=== PATIENT | male | born 1955 | race Caucasian/White ===

== ENCOUNTER → 2017-01-30 | Outpatient (CLI) | payer MEDICARE, OTHER ==
--- NOTE | 2017-01-30 13:52 | RAD ---
INDICATION: Ataxia and frequent falls. TECHNIQUE: Sagittal T1, axial T1, axial T2, axial FLAIR, axial T2 gradient, coronal T2, and diffusion imaging with ADC map was performed. Comparison is from September 26, 2009. FINDINGS: There is symmetric prominence of the ventricles and sulci. FLAIR hyperintensities in the supratentorial white matter are not specific but most suggestive of moderate small vessel ischemic disease. There is no acute intracranial hemorrhage or extra-axial fluid collection. There is no mass effect or midline shift. There is no restricted diffusion to suggest an acute infarct. Sagittal midline structures are unremarkable. Clival marrow signal is preserved. Intracranial flow voids are preserved. There is minimal pansinus mucosal thickening with small left maxillary retention cyst. IMPRESSION: 1. No acute intracranial findings. 2. Brain parenchymal volume loss and probable small vessel ischemic disease. Electronically signed by: Omkar Dick MD (01/30/2017 1:49 PM) [id number]
== END | disposition home or self-care (01) ==
LOC: MRI 15:12
PROVIDERS: ATTEND Family Medicine
DX: I69.893 Ataxia following other cerebrovascular disease (principal); R29.6 Repeated falls
CPT/HCPCS: 70551